=== PATIENT | male | born 1950 | race Caucasian/White ===

== ENCOUNTER 2020-09-21 21:41 | Emergency (ER) | payer MEDICARE, OTHER ==
[~2020-09-21] VITALS: Ht 165.1 cm; Wt 54.4 kg
[2020-09-22 02:00] VITALS: BP 118/72
== END 2020-09-22 02:36 | disposition home or self-care (01) ==
LOC: ER 21:41
DX: R22.0 Localized swelling, mass and lump, head (principal); M25.531 Pain in right wrist; W18.00XA Striking against unspecified object with subsequent fall, initial encounter; Y93.89 Activity, other specified; Y92.89 Other specified places as the place of occurrence of the external cause; Y99.8 Other external cause status
CPT/HCPCS: 70450; 70486; 72125